=== PATIENT | female | born 1970 | race Caucasian/White ===

== ENCOUNTER 2018-01-31 20:32 | Emergency (ER) | payer OTHER ==
[2018-01-31] MEDS ORDERED: DIPHTHERIA TOXOID IM ONE (20:33)
[2018-01-31] MEDS ORDERED: TETANUS TOXOID IM ONE (20:33)
[2018-01-31] MEDS ORDERED: BACIGUENT PACKET TOP ONE (20:33)
[2018-01-31] MEDS ORDERED: ACELLULAR PERTUSSIS VACCINE IM ONE (20:33)
[2018-01-31] MEDS ORDERED: Adacel Vial IM ONE (22:48)
== END 2018-01-31 21:32 | disposition home or self-care (01) ==
LOC: ED 20:32
DX: S71.111A Laceration without foreign body, right thigh, initial encounter (principal); W31.89XA Contact with other specified machinery, initial encounter
CPT/HCPCS: 90471; 90715; A9270-GY

== ENCOUNTER 2023-05-01 18:18 | Emergency (ER) | payer OTHER ==
[2023-05-01 18:37] VITALS: TEMP 97.6
[2023-05-01] MEDS ORDERED: TORAdol 30 mg Injection IM ONE (18:58)
[2023-05-01] MEDS ORDERED: Norflex 60 MG/2 ML IM ONE (19:02)
--- NOTE | 2023-05-01 19:10 | ERPHSYRPT ---
- History of Present Illness Time Seen by Provider: 05/01/23 18:28 Source: patient Exam Limitations: no limitations Patient Subjective Stated Complaint: Pt states "I have had lower back pain for the past couple of days. I have knots on my lower back." Triage Nursing Assessment: Pt presented alert and oriented X 3, skin pwd. Pt ambulates with an uprght steady gait, able to speak in clear full sentences. PT has tenderness lateral lower back. Physician History: 53 years old female with history of scoliosis, chronic back pain, hypertension, anxiety/depression presented in the ER with chief complaint of left lower back pain for the last couple of days. Patient reports moderate intensity sharp pain left lower back, aggravated with ambulation and better with resting. Denies any radiation, no numbness tingling or weakness. Denies any loss of bowel or bladder control. No perineal numbness. Denies any fall or trauma. No change in gait. Allergies/Adverse Reactions: honey Allergy (Severe, Verified 11/14/15 15:24) throat swells egg [Egg] Allergy (Intermediate, Verified 11/14/15 15:24) hives Home Medications: PARoxetine HCL [Paxil] 40 mg PO DAILY 04/23/13 [History] lisinopriL [Zestril] 30 mg PO DAILY 05/01/23 [History] Hx Tetanus, Diphtheria Vaccination/Date Given: Yes Hx Influenza Vaccination/Date Given: No Hx Pneumococcal Vaccination/Date Given: No Immunizations Up to Date: Yes Travel Risk - International Travel Have you traveled outside of the country in past 3 weeks: No - Coronavirus Screening Are you exhibiting any of the following symptoms?: No Close contact with a COVID-19 positive Pt in past 14-21 Days: No - Vaccine Status Have you recieved a Covid-19 vaccination: No - Review of Systems Constitutional: No Symptoms Ears, Nose, & Throat: No Symptoms Respiratory: No Symptoms Cardiac: No Symptoms Abdominal/Gastrointestinal: No Symptoms Genitourinary Symptoms: No Symptoms Musculoskeletal: Back Pain Skin: No Symptoms Neurological: No Symptoms Psychological: Anxiety, Depression Hematologic/Lymphatic: No Symptoms Immunological/Allergic: No Symptoms - Past Medical History Pertinent Past Medical History: Yes Neurological History: Migraines ENT History: No Pertinent History Cardiac History: No Pertinent History Respiratory History: No Pertinent History Endocrine Medical History: No Pertinent History Musculoskeletal History: Arthritis, Degenerative Disk Disease GI Medical History: Colitis, Other History: No Pertinent History Psycho-Social History: Depression Female Reproductive Disorders: No Pertinent History Other Medical History: scoliosis. fidel mountain spotted fever - Past Surgical History Past Surgical History: Yes Neuro Surgical History: No Pertinent History Cardiac: No Pertinent History Respiratory: No Pertinent History Gastrointestinal: No Pertinent History Genitourinary: No Pertinent History Musculoskeletal: Orthopedic Surgery Female Surgical History: Section, Tubal Ligation Other Surgical History: KNEE SURGERY - Social History Smoking Status: Current every day smoker How long have you smoked: 20 Exposure to second hand smoke: Yes Drug Use: methamphetamines Patient Lives Alone: Yes - Nursing Vital Signs Nursing Vital Signs: Initial Vital Signs Temperature 97.6 F 05/01/23 18:28 Pulse Rate 120 H 05/01/23 18:28 Respiratory Rate 20 05/01/23 18:28 Blood Pressure 180/92 05/01/23 18:28 O2 Sat by Pulse Oximetry 98 05/01/23 18:28 Pain Scale Pain Intensity [Lower Back] 5 Pain Intensity 5 - Physical Exam General Appearance: no apparent distress, alert Eye Exam: PERRL/EOMI Ears, Nose, Throat Exam: normal ENT inspection Neck Exam: normal inspection, full range of motion Respiratory Exam: normal breath sounds, lungs clear Cardiovascular Exam: regular rate/rhythm, normal heart sounds Gastrointestinal Exam: soft, normal bowel sounds, No tenderness Back Exam: normal inspection, normal range of motion, muscle spasm (Left sacr oiliac area tenderness. Negative straight leg raising test at 90 degrees bilateral. Intact sensations and bilateral 2+ symmetric patellar and Achilles reflexes.), point tenderness, No vertebral tenderness Extremity Exam: normal inspection, normal range of motion, pelvis stable Neurologic Exam: alert, oriented x 3, cooperative Skin Exam: normal color SpO2 Interpretation: normal SpO2: 98 O2 Delivery: Room Air Ordered Tests: Medication Summary Discontinued Medications Generic Name Dose Route Start Last Admin Trade Name Freq PRN Reason Stop Dose Admin Ketorolac Tromethamine 30 mg 05/01/23 18:58 05/01/23 19:20 Ketorolac Tromethamine 30 Mg/Ml Inj IM 05/01/23 18:59 30 mg STAT ONE Administration Ketorolac Tromethamine Confirm 05/01/23 19:18 Ketorolac Tromethamine 30 Mg/Ml Inj Administered 05/01/23 19:19 Dose 30 mg .ROUTE .STK-MED ONE Orphenadrine Citrate 60 mg 05/01/23 19:02 05/01/23 19:20 Orphenadrine Citrate 60 Mg/2 Ml Vial IM 05/01/23 19:03 60 mg STAT ONE Administration Orphenadrine Citrate Confirm 05/01/23 19:18 Orphenadrine Citrate 60 Mg/2 Ml Vial Administered 05/01/23 19:19 Dose 60 mg .ROUTE .STK-MED ONE - Progress Progress: improved Progress Note: 53 years old female with history of scoliosis, chronic back pain, hypertension, anxiety/depression presented in the ER with chief complaint of left lower back pain for the last couple of days. Patient reports moderate intensity sharp pain left lower back, aggravated with ambulation and better with resting. Denies any radiation, no numbness tingling or weakness. Denies any loss of bowel or bladder control. No perineal numbness. Denies any fall or trauma. No change in gait. Patient has negative neuro exam and lower extremities with bilateral straight leg raising test negative at 90 degrees. 2+ symmetric reflexes in the Achilles and patella. Plantars bilateral downgoing. No loss of bowel or bladder control. Tenderness is not in the midline and more in the left sacroiliac area. Given Toradol and Norflex for symptomatic relief, feeling much better on reevaluation. I believe patient has low back strain, we will continue with NSAIDs and muscle relaxants to go home. Discussed signs symptoms of worsening needing return to ER which she seems understanding. Stable for discharge. 05/01/23 20:24 Patient was feeling better and wanted to leave. I was busy with another patient putting central line. She walked out without paperwork. I have sent a medication and will call her about diet. Counseled pt/family regarding: diagnosis, need for follow-up, rad results Medical Desision Making - Risk of complications The pt has a mod risk of morbidity or mortality based on: Need for prescription drug management - Departure Departure Disposition: Home Clinical Impression: Low back strain Condition: Stable Critical Care Time: No Referrals: DOCTOR,NO FAMILY [Primary Care Provider] - Follow up/PCP as directed PATRICE FLANAGAN MD [ACTIVE STAFF] - Follow up/PCP as directed (In 12 days for reevaluation) Instructions: Low Back Pain (DC) Additional Instructions: Take Tylenol/ibuprofen as needed. Follow-up with primary care for reevaluation. Return to ER for intractable back pain, numbness tingling weakness of lower extremities, loss of bowel or bladder control etc. Prescriptions: Ibuprofen 600 mg PO Q6HPRN PRN 10 Days #20 tablet PRN Reason: Pain Cyclobenzaprine HCl 10 mg [Flexeril 10 MG] 10 mg PO TID #15 tablet
[2023-05-01] MEDS ORDERED: Norflex 60 MG/2 ML ONE (19:18)
[2023-05-01] MEDS ORDERED: TORAdol 30 mg Injection ONE (19:18)
[2023-05-01 19:32] VITALS: BP 179/99; PULSE 104; RESP 16
[2023-05-01 20:27] VITALS: O2SAT 98
== END 2023-05-01 20:26 | disposition home or self-care (01) ==
LOC: ED 18:18
DX: S39.012A Strain of muscle, fascia and tendon of lower back, initial encounter (principal); I10 Essential (primary) hypertension; Z79.899 Other long term (current) drug therapy; Z28.310 Unvaccinated for COVID-19; Z72.0 Tobacco use
CPT/HCPCS: 96372; 99283; J1885; J2360

== ENCOUNTER 2024-03-11 19:25 | Emergency (ER) | payer OTHER ==
[2024-03-11 19:43] VITALS: RESP 18; TEMP 98.9
[2024-03-11 19:45] VITALS: O2SAT 99
[2024-03-11] MEDS ORDERED: Kenalog-40 ONE (20:15)
[2024-03-11] MEDS: Kenalog-40 IM ONE (20:16)
--- NOTE | 2024-03-11 20:19 | ERPHSYRPT ---
- History of Present Illness Time Seen by Provider: 03/11/24 20:02 Source: patient Exam Limitations: no limitations Patient Subjective Stated Complaint: pt states that she was pulling weeds yesterday and states "I think I got poison [place]" Triage Nursing Assessment: pt ambulatory to bed by self with at bedside, pt alert and oriented x3, pt has facial swelling and reddness noted along with a fine rash located on bilateral lower arms, pt denies any throat swelling or difficulty breathing, pt is in no apparent distress, pt able to talk in complete sentences without difficulty . Physician History: 54-year-old female presented in the ER with complaint of rash on the forearms, face since yesterday after she was bowling [place]. She has no rash on the trunk or lower extremities. Rash on the forearms is improving but has swelling of both cheeks with erythema and itchy sensations. No throat closing sensation. Denies any difficulty breathing. Denies any new detergent or any other known allergen. Allergies/Adverse Reactions: honey Allergy (Severe, Verified 03/11/24 19:34) throat swells egg [Egg] Allergy (Intermediate, Verified 03/11/24 19:34) hives Hx Tetanus, Diphtheria Vaccination/Date Given: Yes Hx Influenza Vaccination/Date Given: No Hx Pneumococcal Vaccination/Date Given: No Travel Risk - International Travel Have you traveled outside of the country in past 3 weeks: No - Emerging Infectious Disease Are you exhibiting symptoms associated with any current EIDs: No - Review of Systems Constitutional: No Symptoms Eyes: Tearing Ears, Nose, & Throat: No Symptoms, Other Respiratory: No Symptoms Cardiac: No Symptoms Abdominal/Gastrointestinal: No Symptoms Musculoskeletal: No Symptoms Skin: Rash Neurological: No Symptoms Endocrine: No Symptoms Hematologic/Lymphatic: No Symptoms - Past Medical History Pertinent Past Medical History: Yes Neurological History: Migraines ENT History: No Pertinent History Cardiac History: No Pertinent History Respiratory History: No Pertinent History Endocrine Medical History: No Pertinent History Musculoskeletal History: Arthritis, Degenerative Disk Disease GI Medical History: Colitis, Other History: No Pertinent History Psycho-Social History: Depression Female Reproductive Disorders: No Pertinent History Other Medical History: scoliosis. fidel mountain spotted fever - Past Surgical History Past Surgical History: Yes Neuro Surgical History: No Pertinent History Cardiac: No Pertinent History Respiratory: No Pertinent History Gastrointestinal: No Pertinent History Genitourinary: No Pertinent History Musculoskeletal: Orthopedic Surgery Female Surgical History: Section, Tubal Ligation Other Surgical History: KNEE SURGERY - Female History Hx Last Menstrual Period: last year- menopause Hx Now: No - Social History Smoking Status: Former smoker How long have you smoked: 20 Exposure to second hand smoke: Yes Drug Use: none Patient Lives Alone: Yes - Social Determinants of Health Will the patient participate in the screening: Yes Do you worry about a steady place to live?: No Do you have any problems with any of the following?: No known problems In the past 12 months,have you had to go without utilities?: No Transportation Issues: No Has anyone in your support network made you feel unsafe?: No Have you or anyone in your house had to go without enough: No - Nursing Vital Signs Nursing Vital Signs: Initial Vital Signs Temperature 98.9 F 03/11/24 19:34 Pulse Rate 115 H 03/11/24 19:34 Respiratory Rate 18 03/11/24 19:34 Blood Pressure 182/106 03/11/24 19:34 O2 Sat by Pulse Oximetry 100 03/11/24 19:34 Pain Scale Pain Intensity 5 - Physical Exam General Appearance: no apparent distress, alert Eye Exam: PERRL/EOMI Ears, Nose, Throat Exam: normal ENT inspection, other (Diffuse erythema both cheeks and forehead. Blanchable, no tenderness) Respiratory Exam: normal breath sounds, lungs clear Cardiovascular Exam: regular rate/rhythm, normal heart sounds Back Exam: normal inspection, normal range of motion Extremity Exam: normal inspection, normal range of motion Neurologic Exam: alert, oriented x 3, cooperative Skin Exam: rash (Few linear rash/vesicles forearms.) SpO2 Interpretation: normal SpO2: 99 O2 Delivery: Room Air Ordered Tests: Medication Summary Discontinued Medications Generic Name Dose Route Start Last Admin Trade Name Freq PRN Reason Stop Dose Admin Triamcinolone Acetonide 60 mg 03/11/24 20:12 Triamcinolone Acetonide 40 Mg/Ml Ml IM 03/11/24 20:13 STAT ONE - Progress Progress: unchanged Progress Note: 03/11/24 20:20 54-year-old is evaluated in the ER for rash after she pulled weeds yesterday. Patient has no difficulty breathing. She is given a dose of Kenalog and will start her on short course of oral steroids. Since it is on the face, I would not give her any topical steroids. Discussed signs symptoms of worsening needing return to ER which she seems understanding. Counseled pt/family regarding: diagnosis, need for follow-up Medical Desision Making - Diagnostic Testing Diagnostic test were ordered, analyzed, and reviewed by me: No - Risk of complications The pt has a mod risk of morbidity or mortality based on: Need for prescription drug management - Departure Departure Disposition: Home Clinical Impression: Irritant contact dermatitis Condition: Stable Critical Care Time: No Referrals: DOCTOR,NO FAMILY [Primary Care Provider] - Follow up with PCP 1 day Instructions: Poison [place], Poison [place], Poison [place] (DC) Additional Instructions: Follow-up with your primary care for reevaluation. Return to ER for worsening rash/swelling or if have fever chills/difficulty breathing etc. Prescriptions: Diphenhydramine HCl 25 mg [Benadryl 25 mg Capsule] 25 mg PO Q4H PRN PRN #20 cap PRN Reason: Allergies Prednisone 20 mg [Deltasone 20 mg] 60 mg PO DAILY 5 Days #15 tablet
[2024-03-11 20:32] VITALS: BP 161/107; PULSE 104
== END 2024-03-11 20:39 | disposition home or self-care (01) ==
LOC: ED 19:25
DX: L24.9 Irritant contact dermatitis, unspecified cause (principal); Z79.52 Long term (current) use of systemic steroids
CPT/HCPCS: 96372; 99283; J3301

== ENCOUNTER 2024-12-04 14:49 | Emergency (ER) | payer OTHER ==
[2024-12-04 15:04] VITALS: BP 179/127; PULSE 118; RESP 20; TEMP 97.3; O2SAT 100
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
[2024-12-04] MEDS ORDERED: NORCO 10-325 MG ONE (15:24)
[2024-12-04] MEDS: NORCO 10-325 MG PO ONE (15:26)
[2024-12-04] MEDS: BACIGUENT PACKET TP ONE (15:53)
[2024-12-04] MEDS: BACIGUENT 30 GM TOP ONE (15:54)
== END 2024-12-04 16:03 | disposition home or self-care (01) ==
LOC: ED 14:49
DX: T25.211A Burn of second degree of right ankle, initial encounter (principal); X06.2XXA Exposure to ignition of other clothing and apparel, initial encounter; X03.8XXA Other exposure to controlled fire, not in building or structure, initial encounter; Y93.H9 Activity, other involving exterior property and land maintenance, building and construction; Z79.891 Long term (current) use of opiate analgesic
CPT/HCPCS: 99282; 99283; A9270-GY

== ENCOUNTER 2025-05-28 23:26 | Emergency (ER) | payer OTHER ==
[2025-05-28 23:55] VITALS: TEMP 97.3
--- NOTE | 2025-05-29 00:06 | ERPHSYRPT ---
- History of Present Illness Time Seen by Provider: 05/28/25 23:49 Source: patient Exam Limitations: no limitations Patient Subjective Stated Complaint: pt reports headache and nausea beginning this morning, reports she thinks her blood pressure is high- states she started lisinopril last month. pt also reports her right ear hurts. Triage Nursing Assessment: pt is aox3, pupils perrl, afebrile, resps easy and non labored, cap refill < 3 seconds, radial pulses strong and equal, pt skin pink warm dry. Physician History: 55-year-old female presents the emergency room with headache that started this morning with photophobia reports she is having some nausea denies any vomiting denies any neck stiffness denies any fevers or chills denies any cough congestion denies any chest pain or shortness of breath denies any recent travel or trauma patient is also reporting of right ear pain patient is now in ED for further eval Timing/Duration: today Quality: pressure Head Pain Location: frontal Severity of Pain-Max: mild Severity of Pain-Current: mild Associated Symptoms: No fatigue, No seizures, No sensitive to light, No speech problems, No stiff neck Allergies/Adverse Reactions: honey Allergy (Severe, Verified 05/28/25 23:54) throat swells egg [Egg] Allergy (Intermediate, Verified 05/28/25 23:54) hives Home Medications: Lisinopril 10 mg [Zestril 10 MG] 10 mg PO DAILY 05/28/25 [History] Hx Tetanus, Diphtheria Vaccination/Date Given: Yes Hx Influenza Vaccination/Date Given: No Hx Pneumococcal Vaccination/Date Given: No Immunizations Up to Date: No Travel Risk - International Travel Have you traveled outside of the country in past 3 weeks: No - Emerging Infectious Disease Are you exhibiting symptoms associated with any current EIDs: No - Review of Systems Constitutional: No Fever, No Chills Eyes: No Symptoms Ears, Nose, & Throat: Ear Pain Respiratory: No Cough, No Dyspnea Cardiac: No Chest Pain, No Edema, No Syncope Abdominal/Gastrointestinal: Nausea, No Abdominal Pain, No Vomiting, No Diarrhea Genitourinary Symptoms: No Dysuria Musculoskeletal: No Back Pain, No Neck Pain Skin: No Rash Neurological: Headache, No Dizziness, No Focal Weakness, No Sensory Changes Psychological: No Symptoms Endocrine: No Symptoms All Other Systems: Reviewed and Negative - Past Medical History Pertinent Past Medical History: Yes Neurological History: Migraines ENT History: No Pertinent History Cardiac History: Hypertension Respiratory History: No Pertinent History Endocrine Medical History: No Pertinent History Musculoskeletal History: Arthritis, Degenerative Disk Disease GI Medical History: Colitis, Other History: No Pertinent History Psycho-Social History: Depression Female Reproductive Disorders: No Pertinent History Other Medical History: scoliosis. fidel mountain spotted fever - Past Surgical History Past Surgical History: Yes Neuro Surgical History: No Pertinent History Cardiac: No Pertinent History Respiratory: No Pertinent History Gastrointestinal: No Pertinent History Genitourinary: No Pertinent History Musculoskeletal: Orthopedic Surgery Female Surgical History: Section, Tubal Ligation Other Surgical History: KNEE SURGERY - Female History Hx Last Menstrual Period: menapause Hx Now: No - Social History Smoking Status: Former smoker How long have you smoked: 20 Exposure to second hand smoke: Yes Drug Use: none - Social Determinants of Health Will the patient participate in the screening: Yes Do you worry about a steady place to live?: No Do you have any problems with any of the following?: No known problems In the past 12 months,have you had to go without utilities?: No Transportation Issues: No Has anyone in your support network made you feel unsafe?: No Have you or anyone in your house had to go w/o enough food: No - Nursing Vital Signs Nursing Vital Signs: Initial Vital Signs Pulse Rate 98 H 05/28/25 23:46 Respiratory Rate 19 05/28/25 23:46 Blood Pressure 178/105 05/28/25 23:46 O2 Sat by Pulse Oximetry 98 05/28/25 23:46 Pain Scale Pain Intensity 8 - Physical Exam General Appearance: no apparent distress Eye Exam: PERRL/EOMI Ears, Nose, Throat Exam: moist mucous membranes, other (Cerumen impaction on the right ear) Neck Exam: normal inspection, supple, full range of motion, No meningismus Respiratory Exam: normal breath sounds, lungs clear Cardiovascular Exam: regular rate/rhythm, normal heart sounds Gastrointestinal/Abdominal Exam: soft, No tenderness, No distention Back Exam: normal inspection, normal range of motion Mental Status Exam: alert, oriented x 3, cooperative research intern Exam: normal speech, PERRL, No facial droop Coordination/Gait Exam: normal cerebellar function Motor/Sensory Exam: no motor deficit, no sensory deficit Skin Exam: normal color, warm, dry, No rash SpO2: 99 - Course Nursing assessment & vital signs reviewed: Yes Ordered Tests: Active Orders 24 hr Category Date Time Status Financial Services Agent STAT Care 05/29/25 00:03 Active IV Insertion STAT Care 05/29/25 00:03 Active Pulse Oximetry (ED) STAT Care 05/29/25 00:03 Active HEAD WITHOUT CONTRAST [CT] Stat Exams 05/29/25 00:03 Completed CBC W DIFF Stat Lab 05/29/25 00:27 Completed CMP Stat Lab 05/29/25 00:27 Completed UA W/RFX UR CULTURE Stat Lab 05/29/25 02:07 Ordered Medication Summary Discontinued Medications Generic Name Dose Route Start Last Admin Trade Name Freq PRN Reason Stop Dose Admin Diphenhydramine HCl 50 mg 05/29/25 00:03 05/29/25 00:32 Diphenhydramine Hcl 50 Mg/Ml Vial IV 05/29/25 00:04 50 mg STAT ONE Administration Diphenhydramine HCl Confirm 05/29/25 00:31 Diphenhydramine Hcl 50 Mg/Ml Vial Administered 05/29/25 00:32 Dose 50 mg .ROUTE .STK-MED ONE Sodium Chloride 1,000 mls @ 999 mls/hr 05/29/25 00:03 05/29/25 01:33 Sodium Chloride 0.9% 1000 Ml IV 05/29/25 01:03 Infused .Q1H1M STA Infusion Sodium Chloride Confirm 05/29/25 00:32 Sodium Chloride 0.9% 1000 Ml Administered 05/29/25 00:33 Dose 1,000 mls @ ud .ROUTE .STK-MED ONE Metoclopramide HCl 10 mg 05/29/25 00:03 05/29/25 00:33 Metoclopramide Hcl 10 Mg/2 Ml Vial IV 05/29/25 00:04 10 mg STAT ONE Administration Metoclopramide HCl Confirm 05/29/25 00:31 Metoclopramide Hcl 10 Mg/2 Ml Vial Administered 05/29/25 00:32 Dose 10 mg .ROUTE .STK-MED ONE Lab/Rad Data: Laboratory Result Diagrams 05/29/25 00:27 05/29/25 00:27 Laboratory Results 05/29/25 05/29/25 Range/Units 00:27 00:27 WBC 5.2 (3.98-10.04) x10^3/uL RBC 4.45 (3.93-5.22) x10^6/uL Hgb 13.4 (11.2-15.7) g/dL Hct 39.7 (34.1-44.9) % MCV 89.2 (79.4-94.8) fL MCH 30.1 (25.6-32.2) pg MCHC 33.8 (32.2-35.5) g/dL RDW 11.8 (11.7-14.4) % Plt Count 327 (182-369) x10^3/uL MPV 10.3 (9.4-12.3) fL Gran % 57.5 (34.0-71.1) % Immature Gran % (Auto) 0.2 (0.001-0.429) % Nucleat RBC Rel Count 0.0 (0.00-0.2) % Eos # (Auto) 0.05 (0.04-0.36) x10^3/uL Immature Gran # (Auto) 0.01 (0.001-0.031) x10^3u/L Absolute Lymphs (auto) 1.78 (1.18-3.74) x10^3/uL Absolute Monos (auto) 0.35 (0.24-0.86) x10^3/uL Absolute Nucleated RBC 0.00 (0.00-0.012) x10^3u/L Lymphocytes % 34.2 (19.3-51.7) % Monocytes % 6.7 (4.7-12.5) % Eosinophils % 1.0 (0.7-5.8) % Basophils % 0.4 (0.1-1.2) % Absolute Granulocytes 2.99 (1.56-6.13) x10^3/uL Basophils # 0.02 (0.01-0.08) x10^3/uL Sodium 140 (135-145) mmol/L Potassium 4.1 (3.5-5.1) mmol/L Chloride 104 (98-107) mmol/L Carbon Dioxide 28 (22-30) mmol/L Anion Gap 12.1 (5-15) MEQ/L BUN 14 (7-17) mg/dL Creatinine 0.70 (0.52-1.04) mg/dL Estimated GFR 102.7 ML/MIN Glucose 115 H (74-106) mg/dL Calcium 10.3 H (8.4-10.2) mg/dL Total Bilirubin 0.10 L (0.2-1.3) mg/dL AST 29 (14-36) U/L ALT 21 (0-35) U/L Alkaline Phosphatase 47 (38-126) U/L Serum Total Protein 7.0 (6.3-8.2) g/dL Albumin 4.4 (3.5-5.0) g/dL - Progress Progress: improved Progress Note: 05/29/25 02:08 Patient feels improved headache is back to baseline patient is resting comfortably awaiting urinalysis results - Departure Departure Disposition: Home Clinical Impression: Headache Qualifiers: Headache type: unspecified Headache chronicity pattern: unspecified pattern I ntractability: not intractable Qualified Code(s): R51.9 - Headache, unspecified Condition: Stable Critical Care Time: No Referrals: DOCTOR,NO FAMILY [Primary Care Provider, UNKNOWN] - Follow up/PCP as directed Instructions: Headache, Adult (DC)
[2025-05-29 00:29] LABS: BASOPHIL % 0.4 % (0.1-1.2); Basophil (Absolute #) 0.02 x10^3/uL (0.01-0.08); Eosinophil (Absolute #) 0.05 x10^3/uL (0.04-0.36); Hematocrit 39.7 % (34.1-44.9); Hemoglobin 13.4 g/dL (11.2-15.7); IMMATURE GRAN # 0.01 x10^3u/L (0.001-0.031); IMMATURE GRAN % 0.2 % (0.001-0.429); Lymphocyte (Absolute #) 1.78 x10^3/uL (1.18-3.74); Mean Corpuscular Hemoglobin 30.1 pg (25.6-32.2); Mean Corpuscular Hgb Concent. 33.8 g/dL (32.2-35.5); Monocyte (Absolute #) 0.35 x10^3/uL (0.24-0.86); NUCLEATED RBC # 0.00 x10^3u/L (0.00-0.012); NUCLEATED RBC % 0.0 % (0.00-0.2); Platelet Count 327 x10^3/uL (182-369); Red Blood Count 4.45 x10^6/uL (3.93-5.22); White Blood Count 5.2 x10^3/uL (3.98-10.04)
[2025-05-29] MEDS ORDERED: Reglan 10 MG/2 ML ONE (00:31)
[2025-05-29] MEDS ORDERED: BENADRYL 50 MG/ML ONE (00:31)
[2025-05-29] MEDS: BENADRYL 50 MG/ML IV ONE (00:32)
[2025-05-29] MEDS: Reglan 10 MG/2 ML IV ONE (00:33)
[2025-05-29 00:42] LABS: Calcium 10.3 mg/dL (8.4-10.2); Carbon Dioxide 28.0 mmol/L (22-30); Creatinine 1 0.7 mg/dL (0.52-1.04); EST GLOMERULAR FILTRATION RATE 102.7 ML/MIN; Glucose 115.0 mg/dL (74-106); Potassium 4.1 mmol/L (3.5-5.1); SGOT/AST 29.0 U/L (14-36); SGPT/ALT 21.0 U/L (0-35); Total Protein 7.0 g/dL (6.3-8.2)
--- NOTE | 2025-05-29 01:22 | XRAY ---
CLINICAL HISTORY: headache COMPARISON: None. TECHNIQUE: Axial non-contrast CT scan of the brain was performed from the skull base to the high parietal region. One of the following dose reduction techniques was utilized for this exam: Automated exposure control, adjustment of the mA and/or kV according to patient size, use of iterative reconstruction. FINDINGS: Brain Parenchyma: Normal attenuation of the cerebral hemispheres, cerebellum, and brainstem. No evidence of acute infarct, hemorrhage, or mass effect. No abnormal areas of hypo- or hyperattenuation. Ventricular System: Ventricles are normal in size and configuration. No evidence of hydrocephalus or ventricular enlargement. Subarachnoid Spaces: Prominent sylvian fissures and basal cisterns, representing early senile involutional changes.. No evidence of subarachnoid hemorrhage or extra-axial fluid collections. Cerebellum and Brainstem: No masses, lesions, or areas of abnormal density. Orbits: Normal appearance of the globes, optic nerves, and extraocular muscles. No evidence of orbital masses or abnormal density. Sinuses: Clear paranasal sinuses. No evidence of sinusitis or mucosal thickening. Mastoid Air Cells: Clear mastoid air cells. No evidence of mastoiditis. Skull: Normal skull morphology. IMPRESSION: No acute abnormality detected in CT of the head without contrast. Electronically Signed by: Roger Cotsello MD. (05/29/2025 01:21:56 EDT)
[2025-05-29 02:08] VITALS: PULSE 84; RESP 15
[2025-05-29 02:09] VITALS: O2SAT 99
[2025-05-29 02:21] LABS: Glucose, Urine Negative (Negative); Protein,Urine Dip Negative (Negative); RBC 0-2 /HPF (0-5); WBC 0-2 /HPF (0-5)
[2025-05-29 02:44] VITALS: BP 157/107
== END 2025-05-29 02:44 | disposition home or self-care (01) ==
LOC: ED 23:26
DX: R51.9 Headache, unspecified (principal); R11.0 Nausea; I10 Essential (primary) hypertension; Z79.899 Other long term (current) drug therapy